=== PATIENT | female | born 1975 | race Caucasian/White ===

== ENCOUNTER 2017-04-27 10:48 | Observation (INO) | payer MEDICAID ==
[2017-04-27] MEDS ORDERED: methylPREDNISolone Sodium Succinate 125 MG/2 ML SDV IV ONE (10:59)
[2017-04-27] MEDS ORDERED: Albuterol/Ipratropium 3.0-0.5 MG/3 ML Neb Soln NEB ONE ×2 (10:59→12:16)
[2017-04-27] MEDS ORDERED: diphenhydrAMINE 50 MG/ML SDV IVPUSH ONE ×2 (11:00→12:15)
[2017-04-27] MEDS ORDERED: Famotidine 20 MG Tab PO ONE (11:00)
[2017-04-27] MEDS: Albuterol 0.083% 2.5 MG/3 ML Neb Soln NEB ONE ×2 (11:25→12:02)
[2017-04-27] MEDS ORDERED: LORazepam 2 MG/ML MDV IVPUSH ONE ×2 (11:35→13:34)
[2017-04-27] MEDS ORDERED: EPINEPHrine 1 MG/ML SDV IM ONE ×3 (11:35→13:26)
[2017-04-27] MEDS ORDERED: Sodium Chloride 0.9% 1,000 ML IV STA (11:53)
[2017-04-27] MEDS ORDERED: Famotidine 20 MG/2 ML SDV IVPUSH ONE (12:16)
[2017-04-27] MEDS ORDERED: Albuterol 0.083% 2.5 MG/3 ML Neb Soln NEB ONE (12:38)
[2017-04-27 12:50] LABS: CHLORIDE,CL 104 mmol/L (98-107); SODIUM,NA 142 mmol/L (136-145)
[2017-04-27] MEDS ORDERED: EPINEPHrine 1 MG/ML SDV ONE (13:25)
[2017-04-27] MEDS ORDERED: EPINEPHrine 1 MG/ML SDV IM PRN (13:27)
[2017-04-27] MEDS ORDERED: Albuterol 0.083% 2.5 MG/3 ML Neb Soln NEB PRN (13:30)
--- NOTE | 2017-04-27 14:30 | EDM.PDOC ---
ED HPI GENERAL MEDICAL PROBLEM - General Chief Complaint: Allergic Reaction Stated Complaint: ALLERGIC REACTION Time Seen by Provider: 04/27/17 12:17 Source of Information: Reports: Patient History Limitations: Reports: No Limitations - History of Present Illness INITIAL COMMENTS - FREE TEXT/NARRATIVE: Pt. states that she was started on Azithromycin today, and shortly after taking the first dose, she began experiencing throat tightness, wheezing, and shortness of breath. Pt. states that she has a history of anaphylaxis in the past and required intubation after having a reaction to levaquin. Pt. states she tested positive for strep and this is the reason for the zithromax prescription. Pt. took her epi pen prior to coming into the ER and states that the symptoms have improved somewhat. Onset: Today Location: Reports: Generalized Severity: Severe - Related Data Allergies Allergy/AdvReac Type Severity Reaction Status Date / Time azithromycin Allergy Severe Difficulty Verified 04/27/17 13:05 Breathing levofloxacin [From Levaquin] Allergy Severe tongue and Verified 12/31/16 19:46 throat swelling peanut Allergy Severe Anaphylactic Verified 12/31/16 19:46 Shock Home Meds: Home Meds Albuterol/Ipratropium [DuoNeb 3.0-0.5 MG/3 ML] 1 unit INH ASDIRECTED PRN [History] EPINEPHrine [Epinephrine] 0.15 mg IM ONETIME 04/27/17 [History] FLUoxetine [PROzac] 10 mg PO DAILY 04/27/17 [History] lamoTRIgine [Lamictal] 200 mg DAILY 04/27/17 [History] Past Medical History Respiratory History: Reports: Asthma, Intubation, Previous, Other (See Below) Other Respiratory History: left chest tube. Bilat. pneumonia Genitourinary History: Reports: None Psychiatric History: Reports: Anxiety - Past Surgical History Female Surgical History: Reports: Section Musculoskeletal Surgical History: Reports: Other (See Below) Other Musculoskeletal Surgeries/Procedures:: PLIFF (back surgery) Social & Family History - Family History Family Medical History: Noncontributory - Tobacco Use Smoking Status *Q: Former Smoker Years of Tobacco use: 12 Packs/Tins Daily: 1 Used Tobacco, but Quit: Yes Month Tobacco Last Used: 2007 Second Hand Smoke Exposure: No - Caffeine Use Caffeine Use: Reports: Coffee, Energy Drinks, Soda, Tea - Recreational Drug Use Recreational Drug Use: No ED ROS ALLERGIC REACTION - Review of Systems Review Of Systems: See Below Constitutional: Reports: No Symptoms HEENT: Reports: Rhinitis, Sinus Problem, Throat Swelling Respiratory: Reports: Shortness of Breath, Wheezing, Cough Cardiovascular: Reports: Dyspnea on Exertion Endocrine: Reports: No Symptoms GI/Abdominal: Reports: No Symptoms. Denies: Diarrhea, Nausea, Vomiting : Reports: No Symptoms Musculoskeletal: Reports: No Symptoms Skin: Reports: Pruritis, Rash Neurological: Reports: No Symptoms Psychiatric: Reports: No Symptoms Hematologic/Lymphatic: Reports: No Symptoms Immunologic: Reports: Anaphylaxis ED EXAM GENERAL NO PERIP PULSE - Physical Exam Exam: See Below General Appearance: Alert, WD/WN Ears: Normal External Exam, Normal Canal, Hearing Grossly Normal, Normal TMs Nose: Normal Inspection, Normal Mucosa, No Blood Throat/Mouth: Normal Inspection, Normal Teeth, Normal Gums, No Airway Compromise Head: Atraumatic, Normocephalic Neck: Normal Inspection, Supple, Non-Tender, Full Range of Motion Respiratory/Chest: Wheezing, Stridor, Prolonged Expiration Cardiovascular: Normal Peripheral Pulses, Regular Rate, Rhythm, No Edema, No Gallop, No JVD, No Murmur GI/Abdominal: Normal Bowel Sounds, Soft, Non-Tender, No Organomegaly, No Distention (Female) Exam: Deferred Rectal (Female) Exam: Deferred Back Exam: Normal Inspection, Full Range of Motion Extremities: Normal Inspection, Normal Range of Motion, Non-Tender, No Pedal Edema, Normal Capillary Refill Neurological: Alert, Oriented, CN II-XII Intact, Normal Cognition, Normal Gait, Normal Reflexes, No Motor/Sensory Deficits Psychiatric: Normal Affect, Normal Mood Skin Exam: Warm, Dry, Intact. No: Diaphoretic Course - Vital Signs Last Recorded V/S: Last Vital Signs Temp 36.5 C 04/27/17 12:57 Pulse 85 04/27/17 12:57 Resp 20 04/27/17 12:57 BP 139/77 04/27/17 12:57 Pulse Ox 96 04/27/17 12:57 - Orders/Labs/Meds Orders: Active Orders 24 hr Category Date Time Status RT Aerosol Therapy [RC] ASDIRECTED Care 04/27/17 10:59 Active RT Aerosol Therapy [RC] ASDIRECTED Care 04/27/17 11:53 Active RT Aerosol Therapy [RC] ASDIRECTED Care 04/27/17 12:16 Active Chest 1V Frontal [CR] Stat Exams 04/27/17 12:13 Taken Sodium Chloride 0.9% [Normal Saline] 1,000 ml Med 04/27/17 11:53 Active IV NOW Sodium Chloride 0.9% [Saline Flush] Med 04/27/17 10:58 Active 10 ml FLUSH ASDIRECTED PRN Peripheral IV Insertion Adult [OM.PC] Routine Oth 04/27/17 10:59 Ordered Medication Orders Albuterol (Proventil Neb Soln) 2.5 mg NEB Q2H PRN PRN Reason: Dyspnea Diphenhydramine HCl (Benadryl) 50 mg IVPUSH Q4H [facility] Epinephrine HCl (Adrenalin) 0.5 mg IM Q2HR PRN PRN Reason: Dyspnea Famotidine (Pepcid) 40 mg IVPUSH BID [place] Sodium Chloride (Normal Saline) 1,000 mls @ 125 mls/hr IV NOW STA Stop: 04/27/17 19:52 Last Admin: 04/27/17 12:30 Dose: 125 mls/hr Methylprednisolone Sodium Succinate (Solu-Medrol) 125 mg IVPUSH Q6H [facility] Sodium Chloride (Saline Flush) 10 ml FLUSH ASDIRECTED PRN PRN Reason: Keep Vein Open Meds: Medications Generic Name Dose Route Start Last Admin Trade Name Freq PRN Reason Stop Dose Admin Albuterol 2.5 mg 04/27/17 13:30 Proventil Neb Soln NEB Q2H PRN Dyspnea Diphenhydramine HCl 50 mg 04/27/17 15:00 Benadryl IVPUSH Q4H [facility] Epinephrine HCl 0.5 mg 04/27/17 13:27 Adrenalin IM Q2HR PRN Dyspnea Famotidine 40 mg 04/27/17 20:00 Pepcid IVPUSH BID [facility] Sodium Chloride 1,000 mls @ 125 mls/hr 04/27/17 11:53 04/27/17 12:30 Normal Saline IV 04/27/17 19:52 125 mls/hr NOW STA Administration Methylprednisolone Sodium Succinate 125 mg 04/27/17 17:00 Solu-Medrol IVPUSH Q6H [facility] Sodium Chloride 10 ml 04/27/17 10:58 Saline Flush FLUSH ASDIRECTED PRN Keep Vein Open Discontinued Medications Generic Name Dose Route Start Last Admin Trade Name Mery PRN Reason Stop Dose Admin Albuterol 2.5 mg 04/27/17 11:52 04/27/17 12:02 Proventil Neb Soln NEB 04/27/17 11:53 2.5 mg ONETIME ONE Administration Albuterol 2.5 mg 04/27/17 12:38 04/27/17 11:40 Proventil Neb Soln NEB 04/27/17 12:39 2.5 mg ONETIME ONE Administration Albuterol/Ipratropium 3 ml 04/27/17 10:59 04/27/17 11:00 Duoneb 3.0-0.5 Mg/3 Ml NEB 04/27/17 11:00 3 ml ONETIME ONE Administration Albuterol/Ipratropium 3 ml 04/27/17 12:16 04/27/17 14:04 Duoneb 3.0-0.5 Mg/3 Ml NEB 04/27/17 12:17 Not Given ONETIME ONE Diphenhydramine HCl 50 mg 04/27/17 11:00 04/27/17 11:14 Benadryl IVPUSH 04/27/17 11:01 50 mg ONETIME ONE Administration Diphenhydramine HCl 50 mg 04/27/17 12:15 04/27/17 12:33 Benadryl IVPUSH 04/27/17 12:16 50 mg ONETIME ONE Administration Epinephrine HCl 0.5 mg 04/27/17 11:35 04/27/17 11:45 Adrenalin IM 04/27/17 11:36 0.5 mg ONETIME ONE Administration Epinephrine HCl 0.5 mg 04/27/17 13:23 Adrenalin IM 04/27/17 13:24 ONETIME ONE Epinephrine HCl Confirm 04/27/17 13:25 04/27/17 13:29 Adrenalin Administered 04/27/17 13:26 0.5 mg Dose Administration 1 mg .ROUTE .STK-MED ONE Epinephrine HCl 0.5 mg 04/27/17 13:26 04/27/17 14:03 Adrenalin IM 04/27/17 13:27 Not Given ONETIME ONE Famotidine 20 mg 04/27/17 11:00 04/27/17 11:12 Pepcid PO 04/27/17 11:01 20 mg ONETIME ONE Administration Famotidine 20 mg 04/27/17 12:16 04/27/17 12:38 Pepcid IVPUSH 04/27/17 12:17 20 mg ONETIME ONE Administration Lorazepam 1 mg 04/27/17 11:35 04/27/17 11:47 Ativan IVPUSH 04/27/17 11:36 1 mg ONETIME ONE Administration Lorazepam 1 mg 04/27/17 13:34 04/27/17 13:50 Ativan IVPUSH 04/27/17 13:35 1 mg ONETIME ONE Administration Methylprednisolone Sodium Succinate 125 mg 04/27/17 10:59 04/27/17 11:11 Solu-Medrol IV 04/27/17 11:00 125 mg ONETIME ONE Administration Departure - Departure Time of Disposition: 13:15 Disposition: Refer to Observation Clinical Impression: Dyspnea Anaphylaxis Qualifiers: Encounter type: initial encounter Qualified Code(s): T78.2XXA - Anaphylactic shock, unspecified, initial encounter - Discharge Information - My Orders Last 24 Hours: My Active Orders 04/27/17 10:58 Sodium Chloride 0.9% [Saline Flush] 10 ml FLUSH ASDIRECTED PRN 04/27/17 10:59 RT Aerosol Therapy [RC] ASDIRECTED Peripheral IV Insertion Adult [OM.PC] Routine 04/27/17 11:53 RT Aerosol Therapy [RC] ASDIRECTED Sodium Chloride 0.9% [Normal Saline] 1,000 ml IV NOW 04/27/17 12:13 Chest 1V Frontal [CR] Stat 04/27/17 12:16 RT Aerosol Therapy [RC] ASDIRECTED - Assessment/Plan Last 24 Hours: My Active Orders 04/27/17 10:58 Sodium Chloride 0.9% [Saline Flush] 10 ml FLUSH ASDIRECTED PRN 04/27/17 10:59 RT Aerosol Therapy [RC] ASDIRECTED Peripheral IV Insertion Adult [OM.PC] Routine 04/27/17 11:53 RT Aerosol Therapy [RC] ASDIRECTED Sodium Chloride 0.9% [Normal Saline] 1,000 ml IV NOW 04/27/17 12:13 Chest 1V Frontal [CR] Stat 04/27/17 12:16 RT Aerosol Therapy [RC] ASDIRECTED Assessment:: anaphylaxis Plan: Epi 0.5mg IM every 2 hours PRN Albuterol 2.5mg neb every 2 hours PRN Benadryl 50mg IV Pepcid 40mg IV twice daily Solu medrol 125mg IV every 6 hours Telemetry and pulse oximetry Pt. is a code level 1.
[2017-04-27] MEDS: diphenhydrAMINE 50 MG/ML SDV IVPUSH SCH ×3 (14:31→22:50)
[2017-04-27] MEDS: Sodium Chloride 0.9% 10 ML Syringe FLUSH PRN ×3 (14:32→22:50)
[2017-04-27] MEDS: methylPREDNISolone Sodium Succinate 125 MG/2 ML SDV IVPUSH SCH ×2 (17:10→22:49)
[2017-04-27] MEDS: Famotidine 20 MG/2 ML SDV IVPUSH SCH (19:34)
[2017-04-27] MEDS: LORazepam 2 MG/ML MDV IVPUSH PRN (19:39)
[2017-04-27] MEDS ORDERED: Ibuprofen 200 MG Tab PO ONE (19:55)
[2017-04-28] MEDS: LORazepam 2 MG/ML MDV IVPUSH PRN ×4 (01:52→18:38)
[2017-04-28] MEDS: diphenhydrAMINE 50 MG/ML SDV IVPUSH SCH ×6 (02:57→22:50)
[2017-04-28] MEDS: Sodium Chloride 0.9% 10 ML Syringe FLUSH PRN ×2 (02:58→06:22)
[2017-04-28] MEDS: methylPREDNISolone Sodium Succinate 125 MG/2 ML SDV IVPUSH SCH ×4 (04:42→22:50)
--- NOTE | 2017-04-28 05:02 | PCM.DCSUM1 ---
Discharge Summary - Hospital Course Free Text/Narrative:: Pt. presented to ER with acute allergic reaction due to azithromycin. Pt. has a history of anaphylaxis in the past, requiring intubation. Pt. states that she took azithromycin for strep throat and states that shortly thereafter, she developed onset of throat tightness and wheezing. Previous episode of anaphylaxis was secondary levaquin. Pt. denies any nausea or vomiting. Pt. did use her epi pen prior to coming to ER. Pt. was treated with IM epinephrine, IV benadryl, IV solu medrol, and nebulized albuterol. She states that she is feeling much better and her throat does not feel as though it "tight" any longer. Her breathing has improved. She states that she feeling anxious from the above medications. - Discharge Data Discharge Date: 04/28/17 Discharge Disposition: Home, Self-Care 01 Condition: Good - Discharge Diagnosis/Problem(s) (1) Anaphylaxis SNOMED Code(s): 93335036 ICD Code: T78.2XXA - ANAPHYLACTIC SHOCK, UNSPECIFIED, INITIAL ENCOUNTER Status: Acute Current Visit: Yes Qualifiers: Encounter type: initial encounter Qualified Code(s): T78.2XXA - Anaphylactic shock, unspecified, initial encounter - Patient Instructions Diet: Heart Healthy Diet Driving: Do Not Drive Showering/Bathing: July Shower - Discharge Plan Home Medications: Home Meds Albuterol/Ipratropium [DuoNeb 3.0-0.5 MG/3 ML] 1 unit INH ASDIRECTED PRN [History] EPINEPHrine [Epinephrine] 0.15 mg IM ONETIME 04/27/17 [History] FLUoxetine [PROzac] 10 mg PO DAILY 04/27/17 [History] lamoTRIgine [Lamictal] 200 mg DAILY 04/27/17 [History] Forms: ED Department Discharge Referrals: PCP,Not In Area [Primary Care Provider] - - General Info Date of Service: 04/28/17 Functional Status: Reports: Pain Controlled - Review of Systems General: Reports: No Symptoms Pulmonary: Reports: Shortness of Breath, Wheezing Cardiovascular: Reports: No Symptoms Gastrointestinal: Reports: No Symptoms Genitourinary: Reports: No Symptoms Musculoskeletal: Reports: No Symptoms Skin: Reports: No Symptoms Neurological: Reports: No Symptoms Psychiatric: Reports: No Symptoms - Patient Data Vitals - Most Recent: Last Vital Signs Temp 36.6 C 04/28/17 02:00 Pulse 76 04/28/17 02:00 Resp 18 04/28/17 02:00 BP 120/71 04/28/17 02:00 Pulse Ox 96 04/28/17 02:00 Weight - Most Recent: 82.645 kg I&O - Last 24 hours: Intake & Output 04/27/17 04/27/17 04/28/17 14:59 22:59 06:59 Intake Total 905 Output Total 600 Balance 305 Lab Results - Last 24 hrs: Laboratory Results - last 24 hr 04/27/17 04/27/17 04/27/17 Range/Units 12:22 12:22 12:22 WBC 12.8 H (4.0-10.0) x10^3/uL RBC 3.99 L (4.00-5.50) x10^6/uL Hgb 12.1 (12.0-16.0) g/dL Hct 37.0 (33.0-47.0) % MCV 92.7 (78.0-93.0) fL MCH 30.3 (26.0-32.0) pg MCHC 32.7 (32.0-36.0) g/dL RDW Coeff of Kylah 15.9 H (10.0-15.0) % Plt Count 342 (130-400) x10^3/uL Neut % (Auto) 93.5 H (50.0-80.0) % Lymph % (Auto) 5.3 L (25.0-50.0) % Rhea % (Auto) 1.1 L (2.0-11.0) % Eos % (Auto) 0.0 (0.0-4.0) % Baso % (Auto) 0.1 L (0.2-1.2) % Sodium 142 (136-145) mmol/L Potassium 3.9 (3.5-5.1) mmol/L Chloride 104 (98-107) mmol/L Carbon Dioxide 25 (21-32) mmol/L BUN 14 (7-18) mg/dL Creatinine 0.9 (0.55-1.02) mg/dL Est Cr Clr Drug Dosing TNP Estimated GFR (MDRD) > 60 Glucose 143 H (74-106) mg/dL Lactic Acid 2.0 (0.4-2.0) mmol/L Calcium 9.0 (8.5-10.1) mg/dL Corrected Calcium 9.08 (8.5-10.1) mg/dL Total Bilirubin 0.3 (0.2-1.0) mg/dL AST 19 (15-37) U/L ALT 33 (14-59) U/L Alkaline Phosphatase 88 (46-116) U/L C-Reactive Protein < 0.2 (<=0.9) mg/dL Total Protein 7.7 (6.4-8.2) g/dL Albumin 3.9 (3.4-5.0) g/dL Globulin 3.8 Albumin/Globulin Ratio 1.03 Med Orders - Current: Current Medications Albuterol (Proventil Neb Soln) 2.5 mg NEB Q2H PRN PRN Reason: Dyspnea Last Admin: 04/27/17 14:30 Dose: 2.5 mg Diphenhydramine HCl (Benadryl) 50 mg IVPUSH Q4H [facility] Last Admin: 04/28/17 02:57 Dose: 50 mg Epinephrine HCl (Adrenalin) 0.5 mg IM Q2HR PRN PRN Reason: Dyspnea Last Admin: 04/27/17 15:30 Dose: 0.5 mg Famotidine (Pepcid) 40 mg IVPUSH BID [facility] Last Admin: 04/27/17 19:34 Dose: 40 mg Fluoxetine HCl (Prozac) 10 mg PO DAILY [facility] Lorazepam (Ativan) 1 mg IVPUSH Q6H PRN PRN Reason: Anxiety Last Admin: 04/28/17 01:52 Dose: 1 mg Methylprednisolone Sodium Succinate (Solu-Medrol) 125 mg IVPUSH Q6H [facility] Last Admin: 04/28/17 04:42 Dose: 125 mg Lamotrigine [ Lamictal] 200 Mg ( Own Supply) 0 mg PO DAILY [facility] Sodium Chloride (Saline Flush) 10 ml FLUSH ASDIRECTED PRN PRN Reason: Keep Vein Open Last Admin: 04/28/17 02:58 Dose: 10 ml Discontinued Medications Albuterol (Proventil Neb Soln) 2.5 mg NEB ONETIME ONE Stop: 04/27/17 11:53 Last Admin: 04/27/17 12:02 Dose: 2.5 mg Albuterol (Proventil Neb Soln) 2.5 mg NEB ONETIME ONE Stop: 04/27/17 12:39 Last Admin: 04/27/17 11:40 Dose: 2.5 mg Albuterol/Ipratropium (Duoneb 3.0-0.5 Mg/3 Ml) 3 ml NEB ONETIME ONE Stop: 04/27/17 11:00 Last Admin: 04/27/17 11:00 Dose: 3 ml Albuterol/Ipratropium (Duoneb 3.0-0.5 Mg/3 Ml) 3 ml NEB ONETIME ONE Stop: 04/27/17 12:17 Last Admin: 04/27/17 14:04 Dose: Not Given Diphenhydramine HCl (Benadryl) 50 mg IVPUSH ONETIME ONE Stop: 04/27/17 11:01 Last Admin: 04/27/17 11:14 Dose: 50 mg Diphenhydramine HCl (Benadryl) 50 mg IVPUSH ONETIME ONE Stop: 04/27/17 12:16 Last Admin: 04/27/17 12:33 Dose: 50 mg Epinephrine HCl (Adrenalin) 0.5 mg IM ONETIME ONE Stop: 04/27/17 11:36 Last Admin: 04/27/17 11:45 Dose: 0.5 mg Epinephrine HCl (Adrenalin) 0.5 mg IM ONETIME ONE Stop: 04/27/17 13:24 Last Admin: 04/27/17 15:27 Dose: Not Given Epinephrine HCl (Adrenalin) Confirm Administered Dose 1 mg .ROUTE .STK-MED ONE Stop: 04/27/17 13:26 Last Admin: 04/27/17 13:29 Dose: 0.5 mg Epinephrine HCl (Adrenalin) 0.5 mg IM ONETIME ONE Stop: 04/27/17 13:27 Last Admin: 04/27/17 14:03 Dose: Not Given Famotidine (Pepcid) 20 mg PO ONETIME ONE Stop: 04/27/17 11:01 Last Admin: 04/27/17 11:12 Dose: 20 mg Famotidine (Pepcid) 20 mg IVPUSH ONETIME ONE Stop: 04/27/17 12:17 Last Admin: 04/27/17 12:38 Dose: 20 mg Sodium Chloride (Normal Saline) 1,000 mls @ 125 mls/hr IV NOW STA Stop: 04/27/17 19:52 Last Admin: 04/27/17 12:30 Dose: 125 mls/hr Ibuprofen (Motrin) 800 mg PO ONETIME ONE Stop: 04/27/17 19:56 Last Admin: 04/27/17 20:07 Dose: 800 mg Lorazepam (Ativan) 1 mg IVPUSH ONETIME ONE Stop: 04/27/17 11:36 Last Admin: 04/27/17 11:47 Dose: 1 mg Lorazepam (Ativan) 1 mg IVPUSH ONETIME ONE Stop: 04/27/17 13:35 Last Admin: 04/27/17 13:50 Dose: 1 mg Methylprednisolone Sodium Succinate (Solu-Medrol) 125 mg IV ONETIME ONE Stop: 04/27/17 11:00 Last Admin: 04/27/17 11:11 Dose: 125 mg Lamotrigine [ Lamictal] 200 Mg ( Own Supply) 0 mg PO DAILY [place] - Exam Quality Assessment: Reports: Supplemental Oxygen General: Reports: Alert, Oriented HEENT: Reports: Pupils Equal, Pupils Reactive, EOMI, Mucous Membr. Moist/[place] Neck: Reports: Supple Lungs: Reports: Clear to Auscultation, Normal Respiratory Effort GI/Abdominal Exam: Normal Bowel Sounds, Soft, Non-Tender, No Organomegaly, No Abnormal Bruit, No Mass (Female) Exam: Normal External Exam Rectal (Female) Exam: Normal Exam Back Exam: Reports: Normal Inspection, Full Range of Motion Extremities: Normal Inspection, Normal Range of Motion, Non-Tender, No Pedal Edema, Normal Capillary Refill Skin: Reports: Warm, Intact Wound/Incisions: Reports: Healing Well Neurological: Reports: No New Focal Deficit Psy/Mental Status: Reports: Alert, Normal Affect, Normal Mood *Q Meaningful Use (DIS) - VTE *Q VTE Criteria *Q: - Stroke *Q Stroke Criteria *Q: - AMI *Q AMI Criteria *Q:
[2017-04-28] MEDS ORDERED: LAMOTRIGINE 200 MG PO SCH ×2 (08:00)
[2017-04-28] MEDS ORDERED: FLUoxetine 10 MG Cap PO SCH (08:00)
[2017-04-28] MEDS: Famotidine 20 MG/2 ML SDV IVPUSH SCH ×2 (08:18→19:52)
[2017-04-28] MEDS ORDERED: EPINEPHrine 1 MG/ML SDV IM ONE ×2 (08:44→08:51)
[2017-04-28] MEDS ORDERED: EPINEPHrine 1 MG/ML SDV ONE (08:46)
[2017-04-28] MEDS ORDERED: Sodium Chloride 0.9% 1,000 ML IV ONE (08:48)
[2017-04-28] MEDS ORDERED: Racepinephrine 2.25% 0.5 ML Neb Soln NEB ONE (08:51)
[2017-04-28] MEDS ORDERED: ARIPIPRAZOLE 10 MG PO SCH (15:30)
[2017-04-28] MEDS ORDERED: Ibuprofen 200 MG Tab PO ONE (16:20)
[2017-04-28] MEDS ORDERED: Albuterol/Ipratropium 3.0-0.5 MG/3 ML Neb Soln NEB PRN (16:30)
[2017-04-28] MEDS ORDERED: OLANZapine 10 MG Tab PO PRN (16:53)
[2017-04-28] MEDS ORDERED: busPIRone 5 MG Tab PO ONE (17:00)
[2017-04-28] MEDS ORDERED: lamoTRIgine 100 MG Tab PO ONE (17:00)
[2017-04-28] MEDS ORDERED: FLUoxetine 20 MG Cap PO ONE (17:00)
[2017-04-28] MEDS ORDERED: guaiFENesin/Dextromethorphan 100-10 MG/5 ML Soln 10 ML Cup PO PRN (18:01)
--- NOTE | 2017-04-28 19:15 | PCM.PN ---
- General Info Date of Service: 04/28/17 Admission Dx/Problem (Free Text): Anaphylaxis Acute Drug Reaction Shortness of Breath Wheezing Subjective Update: Patient states her throat feel like it is tightening up and she is having more wheezing. No chest pain. Has SOB. No focal neurological problems. No issues with urination or BM. Patient states she feels very anxious. Patient states she feels like she can not take in a full breath of air. Functional Status: Reports: Pain Controlled, Tolerating Diet, New Symptoms Pain Score: 0 - Review of Systems General: Denies: Fever, Weakness, Chills Pulmonary: Reports: Shortness of Breath, Pleuritic Chest Pain, Cough, Wheezing Cardiovascular: Denies: Chest Pain, Palpitations Gastrointestinal: Denies: Abdominal Pain, Nausea, Vomiting Skin: Reports: No Symptoms Neurological: Reports: Dizziness. Denies: Headache - Patient Data Vitals - Most Recent: Last Vital Signs Temp 37.0 C 04/28/17 17:07 Pulse 86 04/28/17 17:07 Resp 20 04/28/17 17:07 BP 117/70 04/28/17 17:07 Pulse Ox 93 L 04/28/17 17:07 Weight - Most Recent: 82.645 kg I&O - Last 24 Hours: Intake & Output 04/28/17 04/28/17 04/28/17 06:59 14:59 22:59 Intake Total 6594 776 8962 Output Total 600 500 600 Balance 600 490 520 Med Orders - Current: Current Medications Albuterol/Ipratropium (Duoneb 3.0-0.5 Mg/3 Ml) 3 ml NEB Q2H PRN PRN Reason: Wheezing Buspirone HCl (Buspar) 10 mg PO BID [facility] Diphenhydramine HCl (Benadryl) 50 mg IVPUSH Q4H [facility] Last Admin: 04/28/17 18:37 Dose: 50 mg Epinephrine HCl (Adrenalin) 0.5 mg IM Q2HR PRN PRN Reason: Dyspnea Last Admin: 04/27/17 15:30 Dose: 0.5 mg Famotidine (Pepcid) 40 mg IVPUSH BID [facility] Last Admin: 04/28/17 08:18 Dose: 40 mg Fluoxetine HCl (Prozac) 20 mg PO TID [facility] Guaifenesin/Dextromethorphan (Robitussin Dm) 10 ml PO Q4H PRN PRN Reason: Cough Last Admin: 04/28/17 18:38 Dose: 10 ml Lamotrigine (Lamotrigine) 150 mg PO BID [facility] Lorazepam (Ativan) 2 mg IVPUSH Q6H PRN PRN Reason: Anxiety Last Admin: 04/28/17 18:38 Dose: 2 mg Methylprednisolone Sodium Succinate (Solu-Medrol) 125 mg IVPUSH Q6H [facility] Last Admin: 04/28/17 16:54 Dose: 125 mg Mometasone Furoate/Formoterol Fumar (Dulera 200-5 Mcg) 2 puff IH BID [facility] Aripiprazole [ (Abilify] 10mg) 10 mg PO DAILY [facility] Olanzapine (Zyprexa) 20 mg PO BEDTIME [facility] Olanzapine (Zyprexa) 10 mg PO BEDTIME PRN PRN Reason: SLEEP Sodium Chloride (Saline Flush) 10 ml FLUSH ASDIRECTED PRN PRN Reason: Keep Vein Open Last Admin: 04/28/17 06:22 Dose: 10 ml Discontinued Medications Albuterol (Proventil Neb Soln) 2.5 mg NEB ONETIME ONE Stop: 04/27/17 11:53 Last Admin: 04/27/17 12:02 Dose: 2.5 mg Albuterol (Proventil Neb Soln) 2.5 mg NEB ONETIME ONE Stop: 04/27/17 12:39 Last Admin: 04/27/17 11:40 Dose: 2.5 mg Albuterol (Proventil Neb Soln) 2.5 mg NEB Q2H PRN PRN Reason: Dyspnea Last Admin: 04/27/17 14:30 Dose: 2.5 mg Albuterol/Ipratropium (Duoneb 3.0-0.5 Mg/3 Ml) 3 ml NEB ONETIME ONE Stop: 04/27/17 11:00 Last Admin: 04/27/17 11:00 Dose: 3 ml Albuterol/Ipratropium (Duoneb 3.0-0.5 Mg/3 Ml) 3 ml NEB ONETIME ONE Stop: 04/27/17 12:17 Last Admin: 04/27/17 14:04 Dose: Not Given Buspirone HCl (Buspar) 10 mg PO ONETIME ONE Stop: 04/28/17 17:01 Last Admin: 04/28/17 17:03 Dose: 10 mg Diphenhydramine HCl (Benadryl) 50 mg IVPUSH ONETIME ONE Stop: 04/27/17 11:01 Last Admin: 04/27/17 11:14 Dose: 50 mg Diphenhydramine HCl (Benadryl) 50 mg IVPUSH ONETIME ONE Stop: 04/27/17 12:16 Last Admin: 04/27/17 12:33 Dose: 50 mg Epinephrine HCl (Adrenalin) 0.5 mg IM ONETIME ONE Stop: 04/27/17 11:36 Last Admin: 04/27/17 11:45 Dose: 0.5 mg Epinephrine HCl (Adrenalin) 0.5 mg IM ONETIME ONE Stop: 04/27/17 13:24 Last Admin: 04/27/17 15:27 Dose: Not Given Epinephrine HCl (Adrenalin) Confirm Administered Dose 1 mg .ROUTE .STK-MED ONE Stop: 04/27/17 13:26 Last Admin: 04/27/17 13:29 Dose: 0.5 mg Epinephrine HCl (Adrenalin) 0.5 mg IM ONETIME ONE Stop: 04/27/17 13:27 Last Admin: 04/27/17 14:03 Dose: Not Given Epinephrine HCl (Adrenalin) 0.3 mg IM ONETIME ONE Stop: 04/28/17 08:45 Last Admin: 04/28/17 08:51 Dose: Not Given Epinephrine HCl (Adrenalin) Confirm Administered Dose 1 mg .ROUTE .STK-MED ONE Stop: 04/28/17 08:47 Last Admin: 04/28/17 08:51 Dose: 0.3 mg Epinephrine HCl (Adrenalin) 0.3 mg IM ONETIME ONE Stop: 04/28/17 08:52 Last Admin: 04/28/17 09:16 Dose: Not Given Famotidine (Pepcid) 20 mg PO ONETIME ONE Stop: 04/27/17 11:01 Last Admin: 04/27/17 11:12 Dose: 20 mg Famotidine (Pepcid) 20 mg IVPUSH ONETIME ONE Stop: 04/27/17 12:17 Last Admin: 04/27/17 12:38 Dose: 20 mg Fluoxetine HCl (Prozac) 10 mg PO DAILY [facility] Last Admin: 04/28/17 08:16 Dose: 10 mg Fluoxetine HCl (Prozac) 20 mg PO ONETIME ONE Stop: 04/28/17 17:01 Last Admin: 04/28/17 17:03 Dose: 20 mg Sodium Chloride (Normal Saline) 1,000 mls @ 125 mls/hr IV NOW STA Stop: 04/27/17 19:52 Last Admin: 04/27/17 12:30 Dose: 125 mls/hr Sodium Chloride (Normal Saline) 1,000 mls @ 999 mls/hr IV ONETIME ONE Stop: 04/28/17 09:48 Last Admin: 04/28/17 09:00 Dose: 999 mls/hr Ibuprofen (Motrin) 800 mg PO ONETIME ONE Stop: 04/27/17 19:56 Last Admin: 04/27/17 20:07 Dose: 800 mg Ibuprofen (Motrin) 800 mg PO Q4H ONE Stop: 04/28/17 16:21 Last Admin: 04/28/17 17:00 Dose: 800 mg Lamotrigine (Lamotrigine) 150 mg PO ONETIME ONE Stop: 04/28/17 17:01 Last Admin: 04/28/17 17:02 Dose: 150 mg Lorazepam (Ativan) 1 mg IVPUSH ONETIME ONE Stop: 04/27/17 11:36 Last Admin: 04/27/17 11:47 Dose: 1 mg Lorazepam (Ativan) 1 mg IVPUSH ONETIME ONE Stop: 04/27/17 13:35 Last Admin: 04/27/17 13:50 Dose: 1 mg Lorazepam (Ativan) 1 mg IVPUSH Q6H PRN PRN Reason: Anxiety Last Admin: 04/28/17 08:35 Dose: 1 mg Methylprednisolone Sodium Succinate (Solu-Medrol) 125 mg IV ONETIME ONE Stop: 04/27/17 11:00 Last Admin: 04/27/17 11:11 Dose: 125 mg Lamotrigine [ Lamictal] 200 Mg ( Own Supply) 0 mg PO DAILY [facility] Lamotrigine [ Lamictal] 200 Mg ( Own Supply) 0 mg PO DAILY [facility] Last Admin: 04/28/17 16:43 Dose: Not Given Racepinephrine (S-2 2.25%) 0.5 ml NEB ONETIME ONE Stop: 04/28/17 08:52 Last Admin: 04/28/17 09:07 Dose: 0.5 ml - Exam General: Alert, Oriented, Moderate Distress Neck: Supple Lungs: Decreased Breath Sounds, Stridor, Wheezing Cardiovascular: Regular Rhythm, Tachycardia GI/Abdominal Exam: Normal Bowel Sounds, Soft, Non-Tender Peripheral Pulses: 2+: Radial (L), Radial (R) Skin: Warm, Dry, Intact Neurological: No New Focal Deficit - Problem List & Annotations (1) Anaphylaxis SNOMED Code(s): 78090054 Code(s): T78.2XXA - ANAPHYLACTIC SHOCK, UNSPECIFIED, INITIAL ENCOUNTER Status: Acute Priority: High Current Visit: Yes Onset Date: ~04/27/17 Qualifiers: Encounter type: initial encounter Qualified Code(s): T78.2XXA - Anaphylactic shock, unspecified, initial encounter (2) Drug reaction SNOMED Code(s): 18034755 Code(s): T88.7XXA - UNSP ADVERSE EFFECT OF DRUG OR MEDICAMENT, INIT ENCNTR Status: Acute Priority: High Current Visit: Yes Onset Date: ~04/27/17 Qualifiers: Encounter type: initial encounter Qualified Code(s): T88.7XXA - Unspecified adverse effect of drug or medicament, initial encounter (3) Anxiety SNOMED Code(s): 18571408 Code(s): F41.9 - ANXIETY DISORDER, UNSPECIFIED Status: Chronic Priority: Medium Current Visit: No (4) Depression SNOMED Code(s): 09228185 Code(s): F32.9 - MAJOR DEPRESSIVE DISORDER, SINGLE EPISODE, UNSPECIFIED Status: Chronic Current Visit: No Qualifiers: Depression Type: major depressive disorder Major depression recurrence: recurrent Active/Remission status: currently active Psychotic features: without psychotic features (5) Bipolar disorder (manic depression) SNOMED Code(s): 10067963 Code(s): F31.9 - BIPOLAR DISORDER, UNSPECIFIED Status: Chronic Current Visit: Yes Qualifiers: Active/Remission status: currently active Current bipolar episode type: manic Current episode severity: moderate Qualified Code(s): F31.12 - Bipolar disorder, current episode manic without psychotic features, moderate - Problem List Review Problem List Initiated/Reviewed/Updated: Yes - My Orders Last 24 Hours: My Active Orders 04/28/17 08:52 RT Aerosol Therapy [RC] ASDIRECTED 04/28/17 09:36 Chest 2V [CR] Routine 04/28/17 13:15 LORazepam [Ativan] 2 mg IVPUSH Q6H PRN 04/28/17 15:30 ARIPiprazole [Abilify] 10 mg PO DAILY 04/28/17 15:49 EKG 12 Lead [EKG Documentation Completion] [RC] STAT 04/28/17 16:30 Albuterol/Ipratropium [DuoNeb 3.0-0.5 MG/3 ML] 3 ml NEB Q2H PRN 04/28/17 18:01 Dextromethorphan/guaiFENesin [Robitussin DM] 10 ml PO Q4H PRN 04/28/17 20:00 Mometasone/Formoterol [Dulera 200-5 MCG] 2 puff IH BID OLANZapine [ZyPREXA] 20 mg PO BEDTIME 04/29/17 05:11 BASIC METABOLIC PANEL,BMP [CHEM] Routine CBC WITH AUTO DIFF [HEME] Routine 04/29/17 08:00 FLUoxetine [PROzac] 20 mg PO TID busPIRone [Buspar] 10 mg PO BID lamoTRIgine 150 mg PO BID - Plan Plan:: 41-year-old female patient with a past medical history of asthma, drug abuse, bipolar disorder, depression, and anxiety was admitted to the observation unit at [facility] yesterday for an anaphylactic reaction to azithromycin. Patient's discharge will be canceled today due to change in medical condition. We will continue the patient on her anaphylactic medications without any changes at this time as azithromycin has a long half-life. The patient will get when necessary Ativan for increased anxiety. I will restart the patient's psychotropic medications today. It is difficult to discern if the patient's symptoms are from not taking her antipsychotics versus true airway problems. The patient continues to have upper airway wheezing. I believe that the patient' s condition will improve once her antipsychotic medication has been started. It is hard to discern if the patient's anxiety is worsening her wheezing symptoms, but will see how she does once her medicines are restarted. If the patient continues to have issues tomorrow, she will need to be changed to acute care. We will discontinue telemetry. We will discontinue the albuterol and change it to DuoNebs every 2 hours PRN. Will recheck blood work in the morning. The patient's Zyprexa will be restarted as she does not have a true allergy to this medication. We'll continue to monitor this patient closely.
[2017-04-28] MEDS: Formoterol/Mometasone 200-5 MCG 8.8 GM Inhaler IH SCH (19:51)
[2017-04-28] MEDS ORDERED: OLANZapine 10 MG Tab PO SCH (20:00)
[2017-04-28] MEDS ORDERED: Haloperidol Lactate 5 MG/ML SDV IVPUSH ONE (21:36)
[2017-04-29] MEDS ORDERED: Acetaminophen 500 MG Tab PO ONE (01:05)
[2017-04-29] MEDS: diphenhydrAMINE 50 MG/ML SDV IVPUSH SCH ×3 (02:57→10:29)
[2017-04-29] MEDS: Sodium Chloride 0.9% 10 ML Syringe FLUSH PRN ×3 (02:57→10:30)
[2017-04-29] MEDS: methylPREDNISolone Sodium Succinate 125 MG/2 ML SDV IVPUSH SCH ×2 (05:09→10:27)
[2017-04-29] MEDS: LORazepam 2 MG/ML MDV IVPUSH PRN (05:51)
[2017-04-29 07:09] LABS: CHLORIDE,CL 107 mmol/L (98-107); SODIUM,NA 141 mmol/L (136-145)
[2017-04-29] MEDS: FLUoxetine 20 MG Cap PO SCH ×2 (07:46→11:23)
[2017-04-29] MEDS: Formoterol/Mometasone 200-5 MCG 8.8 GM Inhaler IH SCH (07:47)
[2017-04-29] MEDS ORDERED: lamoTRIgine 100 MG Tab PO SCH (08:00)
[2017-04-29] MEDS ORDERED: busPIRone 5 MG Tab PO SCH (08:00)
[2017-04-29] MEDS: Famotidine 20 MG/2 ML SDV IVPUSH SCH (09:03)
[2017-04-29 10:33] VITALS: BP 129/79
--- NOTE | 2017-04-29 12:07 | PCM.DCSUM1 ---
Discharge Summary - Hospital Course HPI Initial Comments: Pt. stated that she was started on Azithromycin a couple of days ago, and shortly after taking the first dose, she began experiencing throat tightness, wheezing, and shortness of breath. Pt. states that she has a history of anaphylaxis in the past and required intubation after having a reaction to levaquin. Pt. states she tested positive for strep and this is the reason for the zithromax prescription. Pt. took her epi pen prior to coming into the ER and states that the symptoms have improved somewhat. Patients chronicity of problems is very unclear as she is not well known to us. Patient follow with Dr. Fagan at [facility] in [place], [place]. She is also being seen by Dr. Saucedo at [facility] in [place] for Psychiatric care. She is very non-compliant with taking her medications. She has a substantial history of drug and narcotic abuse in the past. She has been hospitalized for this in the past as well. It appears patient does not have her bipolar, depression, and anxiety under good control. - Discharge Data Discharge Date: 04/29/17 Discharge Disposition: Home, Self-Care 01 Condition: Good - Discharge Diagnosis/Problem(s) (1) Anaphylaxis SNOMED Code(s): 76107658 ICD Code: T78.2XXA - ANAPHYLACTIC SHOCK, UNSPECIFIED, INITIAL ENCOUNTER Status: Resolved Priority: High Current Visit: Yes Onset Date: ~04/27/17 Qualifiers: Encounter type: initial encounter Qualified Code(s): T78.2XXA - Anaphylactic shock, unspecified, initial encounter (2) Drug reaction SNOMED Code(s): 77252018 ICD Code: T88.7XXA - UNSP ADVERSE EFFECT OF DRUG OR MEDICAMENT, INIT ENCNTR Status: Resolved Priority: High Current Visit: Yes Onset Date: ~ Qualifiers: Encounter type: initial encounter Qualified Code(s): T88.7XXA - Unspecified adverse effect of drug or medicament, initial encounter (3) Anxiety SNOMED Code(s): 66763196 ICD Code: F41.9 - ANXIETY DISORDER, UNSPECIFIED Status: Chronic Priority : Medium Current Visit: No (4) Depression SNOMED Code(s): 63500505 ICD Code: F32.9 - MAJOR DEPRESSIVE DISORDER, SINGLE EPISODE, UNSPECIFIED Status: Chronic Current Visit: No Qualifiers: Depression Type: major depressive disorder Major depression recurrence: recurrent Active/Remission status: currently active Psychotic features: without psychotic features (5) Bipolar disorder (manic depression) SNOMED Code(s): 66749137 ICD Code: F31.9 - BIPOLAR DISORDER, UNSPECIFIED Status: Chronic Current Visit: Yes Qualifiers: Active/Remission status: currently active Current bipolar episode type: manic Current episode severity: moderate Qualified Code(s): F31.12 - Bipolar disorder, current episode manic without psychotic features, moderate - Patient Summary/Data Operative Procedure(s) Performed: None Consults: Case Management Labs Pending at D/C: None Hospital Course: Patient was admitted for drug reaction a couple of days ago and required a longer stay due to lingering symptoms. Patient continue to have issues with anxiety and therefore once home medications were restarted, patient did very well. She continues to have some wheezing at discharge. I believe once the patient is back on a regular schedule with her medications, she will continue to improve. No issues with urination or BM's. Patient ambulating independently in room. Tolerated diet well. Vitals remained stable. No fevers. - Patient Instructions Diet: Heart Healthy Diet Activity: No Strenuous Activities, Rest and Relax Today Driving: Do Not Drive Showering/Bathing: May Shower Notify Provider of: Fever, Nausea and/or Vomiting - Discharge Plan Home Medications: Home Meds Albuterol/Ipratropium [DuoNeb 3.0-0.5 MG/3 ML] 1 unit INH ASDIRECTED PRN [History] EPINEPHrine [Epinephrine] 0.15 mg IM ONETIME 04/27/17 [History] ARIPiprazole [Abilify] 10 mg PO DAILY 04/28/17 [History] Albuterol [Proventil HFA] 2 puff INH Q4H PRN 04/28/17 [History] Diphenoxylate HCl/Atropine [Lomotil] 1 tab PO QID PRN 04/28/17 [History] FLUoxetine HCl [Prozac] 20 mg PO TID 04/28/17 [History] Fluticasone/Salmeterol [Advair 500-50] 1 puff INH BID 04/28/17 [History] OLANZapine [ZyPREXA] 20 mg PO BEDTIME 04/28/17 [History] busPIRone [Buspar] 10 mg PO BID 04/28/17 [History] lamoTRIgine [LaMICtal] 150 mg PO BID 04/28/17 [History] Patient Handouts: Anaphylactic Reaction, Drug Allergy Referrals: PCP,Not In Area [Primary Care Provider] - - Discharge Summary/Plan Comment DC Time >30 min.: Yes Discharge Summary/Plan Comment: Patient will be discharge home today. Extensively discussed with patient regarding compliance with taking her medication as prescribed. She verbalized understanding. she needs a follow up appointment with her PCP for next week. No changes with any medications as of now. She also need to meet with her Psychiatrist to review her current medications as well. - General Info Date of Service: 04/29/17 Admission Dx/Problem (Free Text: Anaphylaxis Acute Drug Reaction Shortness of Breath Wheezing Subjective Update: Patient states she is feeling much better today and her breathing feels back to normal. She denies any chest pain or SOB at time of discharge. No issues with BM 's or urination. Tolerating diet well. No complaints or concerns at time of discharge. Functional Status: Reports: Pain Controlled, Tolerating Diet, Ambulating, Urinating Numeric/FACES Score: 0 - Review of Systems General: Denies: Fever, Chills Pulmonary: Reports: Cough. Denies: Shortness of Breath, Sputum, Wheezing Cardiovascular: Denies: Chest Pain, Palpitations Gastrointestinal: Denies: Abdominal Pain, Nausea, Vomiting Skin: Reports: No Symptoms Neurological: Reports: No Symptoms. Denies: Dizziness, Headache - Patient Data Vitals - Most Recent: Last Vital Signs Temp 36.8 C 04/29/17 10:00 Pulse 86 04/29/17 10:00 Resp 20 04/29/17 10:00 BP 129/79 04/29/17 10:00 Pulse Ox 95 04/29/17 10:00 Weight - Most Recent: 82.645 kg I&O - Last 24 hours: Intake & Output 04/28/17 04/29/17 04/29/17 22:59 06:59 14:59 Intake Total 1120 860 300 Output Total 600 1000 Balance 520 -140 300 Lab Results - Last 24 hrs: Laboratory Results - last 24 hr 04/29/17 04/29/17 Range/Units 06:25 06:25 WBC 17.7 H (4.0-10.0) x10^3/uL RBC 3.85 L (4.00-5.50) x10^6/uL Hgb 11.5 L (12.0-16.0) g/dL Hct 36.0 (33.0-47.0) % MCV 93.5 H (78.0-93.0) fL MCH 29.9 (26.0-32.0) pg MCHC 31.9 L (32.0-36.0) g/dL RDW Coeff of Kylah 16.7 H (10.0-15.0) % Plt Count 315 (130-400) x10^3/uL Add Manual Diff Yes Neutrophils % (Manual) 91 H (50-80) % Band Neutrophils % 4 (0-6) % Lymphocytes % (Manual) 5 L (25-50) % Platelet Estimate Adequate Hypochromasia 1+ slight H Sodium 141 (136-145) mmol/L Potassium 3.9 (3.5-5.1) mmol/L Chloride 107 (98-107) mmol/L Carbon Dioxide 24 (21-32) mmol/L BUN 19 H (7-18) mg/dL Creatinine 0.8 (0.55-1.02) mg/dL Est Cr Clr Drug Dosing 91.81 mL/min Estimated GFR (MDRD) > 60 Glucose 152 H (74-106) mg/dL Calcium 8.2 L (8.5-10.1) mg/dL Med Orders - Current: Current Medications Albuterol/Ipratropium (Duoneb 3.0-0.5 Mg/3 Ml) 3 ml NEB Q2H PRN PRN Reason: Wheezing Buspirone HCl (Buspar) 10 mg PO BID [facility] Last Admin: 04/29/17 07:46 Dose: 10 mg Diphenhydramine HCl (Benadryl) 50 mg IVPUSH Q4H [facility] Last Admin: 04/29/17 10:29 Dose: 50 mg Epinephrine HCl (Adrenalin) 0.5 mg IM Q2HR PRN PRN Reason: Dyspnea Last Admin: 04/27/17 15:30 Dose: 0.5 mg Famotidine (Pepcid) 40 mg IVPUSH BID [facility] Last Admin: 04/29/17 09:03 Dose: 40 mg Fluoxetine HCl (Prozac) 20 mg PO TID [facility] Last Admin: 04/29/17 11:23 Dose: 20 mg Guaifenesin/Dextromethorphan (Robitussin Dm) 10 ml PO Q4H PRN PRN Reason: Cough Last Admin: 04/28/17 18:38 Dose: 10 ml Lamotrigine (Lamotrigine) 150 mg PO BID [facility] Last Admin: 04/29/17 07:45 Dose: 150 mg Lorazepam (Ativan) 2 mg IVPUSH Q6H PRN PRN Reason: Anxiety Last Admin: 04/29/17 05:51 Dose: 2 mg Methylprednisolone Sodium Succinate (Solu-Medrol) 125 mg IVPUSH Q6H [facility] Last Admin: 04/29/17 10:27 Dose: 125 mg Mometasone Furoate/Formoterol Fumar (Dulera 200-5 Mcg) 2 puff IH BID [facility] Last Admin: 04/29/17 07:47 Dose: 2 puff Aripiprazole [ (Abilify] 10mg) 10 mg PO DAILY [facility] Olanzapine (Zyprexa) 20 mg PO BEDTIME [facility] Last Admin: 04/28/17 19:52 Dose: 20 mg Olanzapine (Zyprexa) 10 mg PO BEDTIME PRN PRN Reason: SLEEP Sodium Chloride (Saline Flush) 10 ml FLUSH ASDIRECTED PRN PRN Reason: Keep Vein Open Last Admin: 04/29/17 10:30 Dose: 10 ml Discontinued Medications Acetaminophen (Tylenol Extra Strength) 1,000 mg PO ONETIME ONE Stop: 04/29/17 01:06 Last Admin: 04/29/17 06:12 Dose: Not Given Albuterol (Proventil Neb Soln) 2.5 mg NEB ONETIME ONE Stop: 04/27/17 11:53 Last Admin: 04/27/17 12:02 Dose: 2.5 mg Albuterol (Proventil Neb Soln) 2.5 mg NEB ONETIME ONE Stop: 04/27/17 12:39 Last Admin: 04/27/17 11:40 Dose: 2.5 mg Albuterol (Proventil Neb Soln) 2.5 mg NEB Q2H PRN PRN Reason: Dyspnea Last Admin: 04/27/17 14:30 Dose: 2.5 mg Albuterol/Ipratropium (Duoneb 3.0-0.5 Mg/3 Ml) 3 ml NEB ONETIME ONE Stop: 04/27/17 11:00 Last Admin: 04/27/17 11:00 Dose: 3 ml Albuterol/Ipratropium (Duoneb 3.0-0.5 Mg/3 Ml) 3 ml NEB ONETIME ONE Stop: 04/27/17 12:17 Last Admin: 04/27/17 14:04 Dose: Not Given Buspirone HCl (Buspar) 10 mg PO ONETIME ONE Stop: 04/28/17 17:01 Last Admin: 04/28/17 17:03 Dose: 10 mg Diphenhydramine HCl (Benadryl) 50 mg IVPUSH ONETIME ONE Stop: 04/27/17 11:01 Last Admin: 04/27/17 11:14 Dose: 50 mg Diphenhydramine HCl (Benadryl) 50 mg IVPUSH ONETIME ONE Stop: 04/27/17 12:16 Last Admin: 04/27/17 12:33 Dose: 50 mg Epinephrine HCl (Adrenalin) 0.5 mg IM ONETIME ONE Stop: 04/27/17 11:36 Last Admin: 04/27/17 11:45 Dose: 0.5 mg Epinephrine HCl (Adrenalin) 0.5 mg IM ONETIME ONE Stop: 04/27/17 13:24 Last Admin: 04/27/17 15:27 Dose: Not Given Epinephrine HCl (Adrenalin) Confirm Administered Dose 1 mg .ROUTE .STK-MED ONE Stop: 04/27/17 13:26 Last Admin: 04/27/17 13:29 Dose: 0.5 mg Epinephrine HCl (Adrenalin) 0.5 mg IM ONETIME ONE Stop: 04/27/17 13:27 Last Admin: 04/27/17 14:03 Dose: Not Given Epinephrine HCl (Adrenalin) 0.3 mg IM ONETIME ONE Stop: 04/28/17 08:45 Last Admin: 04/28/17 08:51 Dose: Not Given Epinephrine HCl (Adrenalin) Confirm Administered Dose 1 mg .ROUTE .STK-MED ONE Stop: 04/28/17 08:47 Last Admin: 04/28/17 08:51 Dose: 0.3 mg Epinephrine HCl (Adrenalin) 0.3 mg IM ONETIME ONE Stop: 04/28/17 08:52 Last Admin: 04/28/17 09:16 Dose: Not Given Famotidine (Pepcid) 20 mg PO ONETIME ONE Stop: 04/27/17 11:01 Last Admin: 04/27/17 11:12 Dose: 20 mg Famotidine (Pepcid) 20 mg IVPUSH ONETIME ONE Stop: 04/27/17 12:17 Last Admin: 04/27/17 12:38 Dose: 20 mg Fluoxetine HCl (Prozac) 10 mg PO DAILY [facility] Last Admin: 04/28/17 08:16 Dose: 10 mg Fluoxetine HCl (Prozac) 20 mg PO ONETIME ONE Stop: 04/28/17 17:01 Last Admin: 04/28/17 17:03 Dose: 20 mg Haloperidol Lactate (Haldol) 5 mg IVPUSH ONETIME ONE Stop: 04/28/17 21:37 Last Admin: 04/28/17 21:47 Dose: 5 mg Sodium Chloride (Normal Saline) 1,000 mls @ 125 mls/hr IV NOW STA Stop: 04/27/17 19:52 Last Admin: 04/27/17 12:30 Dose: 125 mls/hr Sodium Chloride (Normal Saline) 1,000 mls @ 999 mls/hr IV ONETIME ONE Stop: 04/28/17 09:48 Last Admin: 04/28/17 09:00 Dose: 999 mls/hr Ibuprofen (Motrin) 800 mg PO ONETIME ONE Stop: 04/27/17 19:56 Last Admin: 04/27/17 20:07 Dose: 800 mg Ibuprofen (Motrin) 800 mg PO Q4H ONE Stop: 04/28/17 16:21 Last Admin: 04/28/17 17:00 Dose: 800 mg Lamotrigine (Lamotrigine) 150 mg PO ONETIME ONE Stop: 04/28/17 17:01 Last Admin: 04/28/17 17:02 Dose: 150 mg Lorazepam (Ativan) 1 mg IVPUSH ONETIME ONE Stop: 04/27/17 11:36 Last Admin: 04/27/17 11:47 Dose: 1 mg Lorazepam (Ativan) 1 mg IVPUSH ONETIME ONE Stop: 04/27/17 13:35 Last Admin: 04/27/17 13:50 Dose: 1 mg Lorazepam (Ativan) 1 mg IVPUSH Q6H PRN PRN Reason: Anxiety Last Admin: 04/28/17 08:35 Dose: 1 mg Methylprednisolone Sodium Succinate (Solu-Medrol) 125 mg IV ONETIME ONE Stop: 04/27/17 11:00 Last Admin: 04/27/17 11:11 Dose: 125 mg Lamotrigine [ Lamictal] 200 Mg ( Own Supply) 0 mg PO DAILY [facility] Lamotrigine [ Lamictal] 200 Mg ( Own Supply) 0 mg PO DAILY [facility] Last Admin: 04/28/17 16:43 Dose: Not Given Racepinephrine (S-2 2.25%) 0.5 ml NEB ONETIME ONE Stop: 04/28/17 08:52 Last Admin: 04/28/17 09:07 Dose: 0.5 ml - Exam General: Reports: Alert, Oriented Neck: Reports: Supple Lungs: Reports: Normal Respiratory Effort, Wheezing Cardiovascular: Reports: Regular Rate, Regular Rhythm GI/Abdominal Exam: Normal Bowel Sounds, Soft, Non-Tender Extremities: Normal Inspection Skin: Reports: Warm, Dry, Intact Neurological: Reports: No New Focal Deficit *Q Meaningful Use (DIS) - VTE *Q VTE Criteria *Q: No risk for falls at time of discharge - Stroke *Q Stroke Criteria *Q: - AMI *Q AMI Criteria *Q:
== END 2017-04-29 12:40 | disposition home or self-care (01) ==
LOC: VM.ED 10:48 → VM.MS 12:17
PROVIDERS: ADMIT Physician Assistant; ATTEND Physician Assistant
DX: T88.6XXA Anaphylactic reaction due to adverse effect of correct drug or medicament properly administered, initial encounter (principal); T36.3X5A Adverse effect of macrolides, initial encounter; F41.9 Anxiety disorder, unspecified; F32.9 Major depressive disorder, single episode, unspecified; F19.11 Other psychoactive substance abuse, in remission; J45.909 Unspecified asthma, uncomplicated; Z79.899 Other long term (current) drug therapy; Z79.51 Long term (current) use of inhaled steroids
CPT/HCPCS: 36415; 71045; 71046; 80048; 80053; 83605; 85025; 86140; 93005; 94640; 94760; 96361; 96372; 96374; 96375; 96376; 99285; A9270-GY; G0378; J0171; J1200; J1630; J2060; J2930; J7030; J7050; J7620-GY; S0028